=== PATIENT | male | born 1995 | race Caucasian/White ===

== ENCOUNTER 2019-05-02 11:30 | Emergency (ER) | payer MEDICAID ==
[~2019-05-02] VITALS: Ht 180.3 cm; Wt 122.0 kg
[2019-05-02 11:44] VITALS: Ht 180.3 cm; Wt 122.0 kg
[2019-05-02 13:27] VITALS: BP 135/81
== END 2019-05-02 13:27 | disposition home or self-care (01) ==
LOC: ED 11:30
DX: J10.1 Influenza due to other identified influenza virus with other respiratory manifestations (principal)
CPT/HCPCS: 87804

== ENCOUNTER 2020-03-04 21:35 | Emergency (ER) | payer SELFPAY ==
[~2020-03-04] VITALS: Ht 182.9 cm; Wt 116.2 kg
[2020-03-04 22:20] VITALS: Ht 182.9 cm; Wt 116.2 kg
[2020-03-05 00:32] VITALS: BP 122/87
== END 2020-03-05 00:32 | disposition home or self-care (01) ==
LOC: ED 21:35
DX: S39.012A Strain of muscle, fascia and tendon of lower back, initial encounter (principal); J45.909 Unspecified asthma, uncomplicated; X58.XXXA Exposure to other specified factors, initial encounter; Y93.89 Activity, other specified; Y92.89 Other specified places as the place of occurrence of the external cause; Y99.8 Other external cause status
CPT/HCPCS: J1885